=== PATIENT | male | born 1960 | race Caucasian/White ===

== ENCOUNTER 2021-07-23 08:55 | Emergency (ER) | payer BC ==
[~2021-07-23] VITALS: Ht 180.3 cm; Wt 93.0 kg
[~2021-07-23 08:55] MED LIST: ACET325 PO; ALBU90OI INH; Advil200 M1 PO; BUDE6HFA INH
[2021-07-23 09:55] LABS: BASOPHILS ABSOLUTE AUTO 0.04 K/mm3 (0.00-0.23); BASOPHILS PERCENT AUTO 1 % (0-2); EOSINOPHILS ABSOLUTE AUTO 0.21 K/mm3 (0.00-0.68); EOSINOPHILS PERCENT AUTO 3 % (0-6); Hematocrit 42.6 % (37.0-53.0); Hemoglobin 14.8 g/dL (13.5-17.5); IMMATURE GRAN ABSOLUTE AUTO 0.02 K/mm3 (0.00-0.10); IMMATURE GRAN PERCENT AUTO 0 % (0-1); LYMPHOCYTES PERCENT AUTO 42 % (21-46); MONOCYTES ABSOLUTE AUTO 0.54 K/mm3 (0.16-1.47); MONOCYTES PERCENT AUTO 7 % (4-13); Mean Corpuscular HGB 29.3 pg (26.0-34.0); Mean Corpuscular HGB Conc 34.7 g/dL (31.5-36.5); Mean Corpuscular Volume 84 fL (80-100); NEUTROPHILS ABSOLUTE AUTO 3.73 K/mm3 (1.96-9.15); NEUTROPHILS PERCENT AUTO 48 % (41-73); RDW Standard Deviation 39.7 fL (35.1-46.3); Red Blood Cell Count 5.05 M/mm3 (4.30-5.90); White Blood Cell Count 7.84 K/mm3 (4.00-11.30)
[2021-07-23 10:11] LABS: Alanine Aminotransfer (ALT/SGP 37 U/L (12-78); Albumin, Blood 3.9 g/dL (3.4-5.0); Albumin/Globulin Ratio 1.1 (0.8-1.8); Alk Phos 68 U/L (50-136); Anion Gap 6 mmol/L (6-16); Aspartate Aminotrans (AST/SGOT 23 U/L (12-37); Bilirubin, Total 0.7 mg/dL (0.1-1.0); Blood Urea Nitrogen 16 mg/dL (8-24); Bun/Creatinine Ratio 20.3 (12.0-20.0); CO2, Blood 26 mmol/L (21-32); Calcium, Blood 8.6 mg/dL (8.5-10.1); Chloride, Blood 109 mmol/L (98-108); Creatinine, Blood 0.79 mg/dL (0.60-1.20); Globulin, Blood 3.5 g/dL (2.2-4.0); Glomerular Filtration Rate >60 (60-); Glucose, Blood 104 mg/dL (70-99); Potassium, Blood 3.8 mmol/L (3.5-5.5); Sodium, Blood 141 mmol/L (136-145); Total Protein, Blood 7.4 g/dL (6.4-8.2)
[2021-07-23 10:29] LABS: Platelet Count 1 K/mm3 (150-400)
[2021-07-23 10:56] LABS: U Amphetamine Screen Not Detected; U Barbituate Screen Not Detected; U Benzodiazapine Screen Not Detected; U Buprenorphine Screen Not Detected; U Cannabinoids Screen Not Detected; U Cocaine Screen Not Detected; U Methadone Screen Not Detected; U Methamphetamine Screen Not Detected; U Opiates Screen Not Detected; U Oxycodone Screen Not Detected; U Phencyclidine Screen Not Detected; U Propoxyphene Screen Not Detected
[2021-07-23 11:19] LABS: International Normalized Ratio 0.96; Prothrombin Time Results 10.4 Sec (9.7-11.5)
[2021-07-23] MEDS ORDERED: DEXA4 PO (11:43)
== END 2021-07-23 12:03 | disposition home or self-care (01) ==
LOC: ER 08:55
PROVIDERS: Emergency Medicine
DX: D69.6 Thrombocytopenia, unspecified (principal); S00.532A Contusion of oral cavity, initial encounter; S50.02XA Contusion of left elbow, initial encounter; J45.909 Unspecified asthma, uncomplicated; Z79.899 Other long term (current) drug therapy; X58.XXXA Exposure to other specified factors, initial encounter
CPT/HCPCS: 36415; 76705; 80053; 85025; 85610; 86850; 86900; 86901; 96374; 99283-25; J1100

== ENCOUNTER 2021-07-30 06:21 | Emergency (ER) | payer BC ==
[~2021-07-30] VITALS: Ht 180.3 cm; Wt 90.7 kg
[~2021-07-30 06:21] MED LIST changes: +DEXA4 PO
[2021-07-30 07:40] LABS: BASOPHILS ABSOLUTE AUTO 0.08 K/mm3 (0.00-0.23); BASOPHILS PERCENT AUTO 0 % (0-2); EOSINOPHILS ABSOLUTE AUTO 0.15 K/mm3 (0.00-0.68); EOSINOPHILS PERCENT AUTO 1 % (0-6); Hematocrit 38.4 % (37.0-53.0); Hemoglobin 13.4 g/dL (13.5-17.5); IMMATURE GRAN ABSOLUTE AUTO 1.02 K/mm3 (0.00-0.10); IMMATURE GRAN PERCENT AUTO 6 % (0-1); LYMPHOCYTES ABSOLUTE AUTO 4.21 K/mm3 (0.84-5.20); LYMPHOCYTES PERCENT AUTO 23 % (21-46); MONOCYTES ABSOLUTE AUTO 1.07 K/mm3 (0.16-1.47); MONOCYTES PERCENT AUTO 6 % (4-13); Mean Corpuscular HGB 29.3 pg (26.0-34.0); Mean Corpuscular HGB Conc 34.9 g/dL (31.5-36.5); Mean Corpuscular Volume 84 fL (80-100); NEUTROPHILS ABSOLUTE AUTO 11.95 K/mm3 (1.96-9.15); NEUTROPHILS PERCENT AUTO 65 % (41-73); NRBC ABSOLUTE 0.07 K/mm3 (0.00-0.02); NRBC Auto 0.4 /100 WBC (0.0-0.2); RDW Coefficient Variation 13.1 % (11.7-14.2); RDW Standard Deviation 39.8 fL (35.1-46.3); Red Blood Cell Count 4.57 M/mm3 (4.30-5.90); White Blood Cell Count 18.48 K/mm3 (4.00-11.30)
[2021-07-30 07:44] LABS: Platelet Count 0 K/mm3 (150-400)
[2021-07-30 07:59] LABS: BASOPHILS PERCENT MAN 0 % (0-2); EOSINOPHILS PERCENT MAN 0 % (0-6); LYMPHOCYTES ABSOLUTE MAN 5.54 K/mm3 (0.84-5.20); LYMPHOCYTES PERCENT MAN 30 % (21-46); MONOCYTES PERCENT MAN 6 % (4-13); MYELOCYTE ABSOLUTE MAN 0.36 K/mm3 (0.00-0.00); MYELOCYTE PERCENT MAN 2 % (0-0); NEUTROPHILS ABSOLUTE MAN 11.45 K/mm3 (1.96-9.15); SEG NEUTROPHILS PERCENT MAN 62 % (41-73); TOTAL CELLS COUNTED 100
[2021-07-30 08:05] LABS: Alanine Aminotransfer (ALT/SGP 72 U/L (12-78); Albumin, Blood 3.4 g/dL (3.4-5.0); Albumin/Globulin Ratio 1.1 (0.8-1.8); Alk Phos 63 U/L (50-136); Anion Gap 4 mmol/L (6-16); Aspartate Aminotrans (AST/SGOT 30 U/L (12-37); Blood Urea Nitrogen 16 mg/dL (8-24); Bun/Creatinine Ratio 24.5 (12.0-20.0); CO2, Blood 28 mmol/L (21-32); Calcium, Blood 8.2 mg/dL (8.5-10.1); Chloride, Blood 103 mmol/L (98-108); Creatinine, Blood 0.65 mg/dL (0.60-1.20); Globulin, Blood 3.1 g/dL (2.2-4.0); Glomerular Filtration Rate >60 (60-); Glucose, Blood 103 mg/dL (70-99); Potassium, Blood 3.6 mmol/L (3.5-5.5); Sodium, Blood 135 mmol/L (136-145); Total Protein, Blood 6.5 g/dL (6.4-8.2)
[2021-07-30 09:04] LABS: International Normalized Ratio 0.93; Prothrombin Time Results 10.1 Sec (9.7-11.5)
[2021-07-30] MEDS ORDERED: Norco 5-325 Ta1 EACH PO (12:57)
== END 2021-07-30 14:09 | disposition home or self-care (01) ==
LOC: ER 06:21
PROVIDERS: Emergency Medicine; Physician Assistant
DX: D69.3 Immune thrombocytopenic purpura (principal); D69.6 Thrombocytopenia, unspecified; M54.5 Low back pain
CPT/HCPCS: 36415; 74177; 80053; 85025; 85610; 85730; 86900; 86901; 92960; 99152; 99285-25; J1170; P9035; Q9967

== ENCOUNTER 2021-08-01 13:35 | Inpatient (IN) | payer BC, OTHER ==
[~2021-08-01] VITALS: Ht 180.3 cm; Wt 87.3 kg
[~2021-08-01 13:35] MED LIST changes: -Percocet 5-3251 EACH PO
[2021-08-01 15:22] LABS: Thyroid Stimulating Hormone 2.93 uIU/mL (0.360-4.800)
[2021-08-02 05:21] LABS: BASOPHILS ABSOLUTE AUTO 0.01 K/mm3 (0.00-0.23); BASOPHILS PERCENT AUTO 0 % (0-2); EOSINOPHILS PERCENT AUTO 2 % (0-6); Hematocrit 34.3 % (37.0-53.0); Hemoglobin 11.7 g/dL (13.5-17.5); IMMATURE GRAN ABSOLUTE AUTO 0.22 K/mm3 (0.00-0.10); IMMATURE GRAN PERCENT AUTO 2 % (0-1); LYMPHOCYTES ABSOLUTE AUTO 3.02 K/mm3 (0.84-5.20); LYMPHOCYTES PERCENT AUTO 28 % (21-46); MONOCYTES ABSOLUTE AUTO 0.82 K/mm3 (0.16-1.47); MONOCYTES PERCENT AUTO 8 % (4-13); Mean Corpuscular HGB 29.7 pg (26.0-34.0); Mean Corpuscular HGB Conc 34.1 g/dL (31.5-36.5); Mean Corpuscular Volume 87 fL (80-100); NEUTROPHILS ABSOLUTE AUTO 6.48 K/mm3 (1.96-9.15); NEUTROPHILS PERCENT AUTO 60 % (41-73); RDW Coefficient Variation 13.8 % (11.7-14.2); RDW Standard Deviation 42.6 fL (35.1-46.3); Red Blood Cell Count 3.94 M/mm3 (4.30-5.90); White Blood Cell Count 10.75 K/mm3 (4.00-11.30)
[2021-08-02 05:33] LABS: Platelet Count 2 K/mm3 (150-400)
[2021-08-02 05:42] LABS: Alanine Aminotransfer (ALT/SGP 116 U/L (12-78); Albumin, Blood 3.1 g/dL (3.4-5.0); Albumin/Globulin Ratio 0.6 (0.8-1.8); Alk Phos 84 U/L (50-136); Anion Gap 2 mmol/L (6-16); Aspartate Aminotrans (AST/SGOT 42 U/L (12-37); Blood Urea Nitrogen 16 mg/dL (8-24); Bun/Creatinine Ratio 21.6 (12.0-20.0); CO2, Blood 28 mmol/L (21-32); Calcium, Blood 8.4 mg/dL (8.5-10.1); Chloride, Blood 101 mmol/L (98-108); Creatinine, Blood 0.74 mg/dL (0.60-1.20); Globulin, Blood 5.4 g/dL (2.2-4.0); Glomerular Filtration Rate >60 (60-); Glucose, Blood 98 mg/dL (70-99); Sodium, Blood 131 mmol/L (136-145); Total Protein, Blood 8.5 g/dL (6.4-8.2)
--- NOTE | 2021-08-02 08:22 | NUR ---
SPOKE WITH DOCTOR CALL LINE FOR CONSULT ON DR. ALDANA. REMOTELY PILOTED VEHICLE CONTROLLER SERVICE NOTIFIED THAT DR. ALDANA IS UNAVAILABLE UNTIL THE . WILL NOTIFY MD. PRIMARY RN NOTIFIED.
--- NOTE | 2021-08-02 08:49 | NUR ---
SPOKE WITH PHYSICIAN ABOUT CONSULT ATTEMPT FOR DR ALDANA. STATES HE WILL TAKE CARE OF THE CONSULT.
--- NOTE | 2021-08-02 09:37 | NUR ---
DR HUITRON IN ROOM.
--- NOTE | 2021-08-02 10:09 | NUR ---
PT STATES OKAY TO UPDATE BROTHER IRIS
--- NOTE | 2021-08-02 17:27 | NUR ---
SHIFT SUMMARY PT A/OX4, INDEPENDENT IN THE ROOM. IGIV GIVEN TODAY. PAIN BEING TREATED PER EMAR, PT REPORTS HAVING LESS BACK PAIN THAN YESTERDAY. TESTS ARE BEING RAN AT THIS TIME PER PHYSICIAN. NO ACUTE CHANGES TODAY.
[2021-08-03 04:12] LABS: BASOPHILS ABSOLUTE AUTO 0.02 K/mm3 (0.00-0.23); BASOPHILS PERCENT AUTO 0 % (0-2); EOSINOPHILS ABSOLUTE AUTO 0.36 K/mm3 (0.00-0.68); EOSINOPHILS PERCENT AUTO 3 % (0-6); Hematocrit 32.3 % (37.0-53.0); Hemoglobin 11.4 g/dL (13.5-17.5); IMMATURE GRAN PERCENT AUTO 1 % (0-1); LYMPHOCYTES ABSOLUTE AUTO 3.89 K/mm3 (0.84-5.20); LYMPHOCYTES PERCENT AUTO 36 % (21-46); MONOCYTES ABSOLUTE AUTO 0.94 K/mm3 (0.16-1.47); MONOCYTES PERCENT AUTO 9 % (4-13); Mean Corpuscular HGB 32.8 pg (26.0-34.0); Mean Corpuscular HGB Conc 35.3 g/dL (31.5-36.5); NEUTROPHILS ABSOLUTE AUTO 5.48 K/mm3 (1.96-9.15); NEUTROPHILS PERCENT AUTO 51 % (41-73); NRBC ABSOLUTE 0.02 K/mm3 (0.00-0.02); NRBC Auto 0.2 /100 WBC (0.0-0.2); RDW Coefficient Variation 15.3 % (11.7-14.2); RDW Standard Deviation 45.2 fL (35.1-46.3); Red Blood Cell Count 3.48 M/mm3 (4.30-5.90); White Blood Cell Count 10.79 K/mm3 (4.00-11.30)
[2021-08-03 04:16] LABS: Mean Corpuscular Volume 93 fL (80-100); Platelet Count 18 K/mm3 (150-400)
--- NOTE | 2021-08-03 04:36 | NUR ---
SHIFT SUMMARY PATIENT SLEPT A FEW HOURS THIS SHIFT. ALERT AND ORIENTED WHEN AWAKE. BACK PAIN NOT CONTROLLED WITH CURRENT PO PAIN MEDS. MEDICATED Q4 PER EMAR. ABLE TO PASS 2 BM'S THIS SHIFT. INDEPENDENT IN ROOM. CRITICAL PLATELET CAME BACK ON AM LABS OF 18, THIS IS UP FROM 2 PREVIOUSLY. WELL POINT PUMPING SUPERVISOR NOTIFIED. WILL REPORT TO DAY SHIFT RN.
[2021-08-03] MEDS ORDERED: Percocet 5-3251 EACH PO ×2 (14:50)
--- NOTE | 2021-08-03 15:17 | NUR ---
DISCHARGE PT A&O X4. PT PROVIDED W/ WRITTEN AND VERBAL INSTRUCTION, PT VERBALIZED UNDERSTANDING. PT TOLERATING PO INTAKE, VOIDING WELL, AND VSS. BOWEL SOUNDS PRESENT IN ALL 4QS. HARD SCRIPT PROVIDED TO PT IN PACKET. GREYSON LYN ESCORTED PT OUT VIA WC.
[2021-08-03 19:08] LABS: HBSAG SCREEN Negative (Negative); HEP A AB, IGM Negative (Negative); HEP B CORE AB, IGM Negative (Negative); HEP C VIRUS AB <0.1 (0.0-0.9); HIV SCREEN 4TH GENERATION WRFX Non Reactive (Non Reactive)
== END 2021-08-03 15:19 | disposition home or self-care (01) | DRG 813 ==
LOC: ER 13:35 → SURS 13:36 → MEDS 13:36 → SURS 18:48
PROVIDERS: Emergency Medicine; Internal Medicine; ADMIT Internal Medicine
DX: D69.3 Immune thrombocytopenic purpura (principal); G89.29 Other chronic pain; M54.9 Dorsalgia, unspecified; K59.00 Constipation, unspecified; R04.0 Epistaxis; J45.20 Mild intermittent asthma, uncomplicated; Z98.890 Other specified postprocedural states; Z94.7 Corneal transplant status; Z86.16 Personal history of COVID-19
CPT/HCPCS: 36415; 73700; 74177; 80053; 80074; 82607; 82746; 84443; 85025; 86677; 86850; 86900; 86901; 87389; 93005; 93010; 94760; 96374-59; 96375; 96376; 99284-25; A9270; C9113; G0378; J1568; J3010; Q9967

== ENCOUNTER → 2021-08-01 | Outpatient (CLI) | payer BC ==
[~2021-08-01] MED LIST changes: +Norco 5-325 Ta1 EACH PO; +Percocet 5-3251 EACH PO
[2021-08-01 12:44] LABS: BASOPHILS ABSOLUTE AUTO 0.02 K/mm3 (0.00-0.23); BASOPHILS PERCENT AUTO 0 % (0-2); EOSINOPHILS ABSOLUTE AUTO 0.15 K/mm3 (0.00-0.68); EOSINOPHILS PERCENT AUTO 1 % (0-6); Hematocrit 40.2 % (37.0-53.0); Hemoglobin 13.8 g/dL (13.5-17.5); IMMATURE GRAN ABSOLUTE AUTO 0.37 K/mm3 (0.00-0.10); IMMATURE GRAN PERCENT AUTO 2 % (0-1); LYMPHOCYTES ABSOLUTE AUTO 4.63 K/mm3 (0.84-5.20); LYMPHOCYTES PERCENT AUTO 28 % (21-46); MONOCYTES ABSOLUTE AUTO 1.15 K/mm3 (0.16-1.47); MONOCYTES PERCENT AUTO 7 % (4-13); Mean Corpuscular HGB 29.4 pg (26.0-34.0); Mean Corpuscular HGB Conc 34.3 g/dL (31.5-36.5); Mean Corpuscular Volume 86 fL (80-100); NEUTROPHILS ABSOLUTE AUTO 10.18 K/mm3 (1.96-9.15); NEUTROPHILS PERCENT AUTO 62 % (41-73); RDW Standard Deviation 42.6 fL (35.1-46.3); Red Blood Cell Count 4.69 M/mm3 (4.30-5.90)
[2021-08-01 12:53] LABS: Alanine Aminotransfer (ALT/SGP 160 U/L (12-78); Alk Phos 108 U/L (40-126); Anion Gap 12 mmol/L (6-16); Aspartate Aminotrans (AST/SGOT 62 U/L (12-37); Bilirubin, Total 1.3 mg/dL (0.1-1.0); Blood Urea Nitrogen 21 mg/dL (8-24); CO2, Blood 27 mmol/L (21-32); Calcium, Blood 8.6 mg/dL (8.5-10.1); Chloride, Blood 99 mmol/L (98-108); Glomerular Filtration Rate >60 (60-); Glucose, Blood 105 mg/dL (70-99); Sodium, Blood 138 mmol/L (136-145)
[2021-08-01 13:01] LABS: Platelet Count 1 K/mm3 (150-400)
[2021-08-01 13:20] LABS: International Normalized Ratio 0.95; Prothrombin Time Results 10.3 Sec (9.7-11.5)
== END | disposition home or self-care (01) ==
LOC: LAB SHORT 12:38 → LAB 12:38
PROVIDERS: Physician Assistant Medical
DX: D69.3 Immune thrombocytopenic purpura (principal)
CPT/HCPCS: 80053; 85025; 85610; 85730

== ENCOUNTER 2021-08-13 11:08 | Day surgery (SDC) | payer BC, OTHER ==
[2021-08-13 08:17] LABS: BASOPHILS ABSOLUTE AUTO 0.01 K/mm3 (0.00-0.23); BASOPHILS PERCENT AUTO 0 % (0-2); EOSINOPHILS ABSOLUTE AUTO 0.25 K/mm3 (0.00-0.68); EOSINOPHILS PERCENT AUTO 3 % (0-6); Hematocrit 30.1 % (37.0-53.0); IMMATURE GRAN PERCENT AUTO 1 % (0-1); LYMPHOCYTES ABSOLUTE AUTO 2.32 K/mm3 (0.84-5.20); LYMPHOCYTES PERCENT AUTO 24 % (21-46); MONOCYTES ABSOLUTE AUTO 0.58 K/mm3 (0.16-1.47); MONOCYTES PERCENT AUTO 6 % (4-13); Mean Corpuscular HGB Conc 33.2 g/dL (31.5-36.5); Mean Corpuscular Volume 93 fL (80-100); NEUTROPHILS ABSOLUTE AUTO 6.25 K/mm3 (1.96-9.15); NEUTROPHILS PERCENT AUTO 66 % (41-73); NRBC ABSOLUTE 0.05 K/mm3 (0.00-0.02); NRBC Auto 0.5 /100 WBC (0.0-0.2); RDW Coefficient Variation 18.3 % (11.7-14.2); Red Blood Cell Count 3.23 M/mm3 (4.30-5.90); White Blood Cell Count 9.51 K/mm3 (4.00-11.30)
[2021-08-13 08:24] LABS: Platelet Count 1 K/mm3 (150-400)
[~2021-08-13 11:08] MED LIST changes: +Percocet 5-3251 EACH PO
== END 2021-08-13 15:35 | disposition home or self-care (01) ==
LOC: ATC 11:08 → LAB FUT 08-04 12:55 → EDSTATUS 08-04 12:55
PROVIDERS: Internal Medicine Hematology & Oncology
DX: D69.3 Immune thrombocytopenic purpura (principal); C91.10 Chronic lymphocytic leukemia of B-cell type not having achieved remission
CPT/HCPCS: 36430; 85025; 86900; 86901; J7050; P9035

== ENCOUNTER 2021-08-21 00:27 | Day surgery (SDC) | payer BC, OTHER ==
[2021-08-20 10:06] LABS: Mean Corpuscular HGB 31.4 pg (26.0-34.0); Mean Corpuscular HGB Conc 33.3 g/dL (31.5-36.5); Mean Corpuscular Volume 94 fL (80-100); NRBC ABSOLUTE 0.09 K/mm3 (0.00-0.02); NRBC Auto 0.7 /100 WBC (0.0-0.2); RDW Coefficient Variation 18.4 % (11.7-14.2); RDW Standard Deviation 59.4 fL (35.1-46.3); Red Blood Cell Count 2.87 M/mm3 (4.30-5.90); White Blood Cell Count 12.89 K/mm3 (4.00-11.30)
[2021-08-20 10:12] LABS: Platelet Count 7 K/mm3 (150-400)
[2021-08-20 10:32] LABS: BAND PERCENT MAN 5 % (0-8); BASOPHILS ABSOLUTE MAN 0.12 K/mm3 (0.00-0.23); BASOPHILS PERCENT MAN 1 % (0-2); EOSINOPHILS PERCENT MAN 0 % (0-6); LYMPHOCYTES ABSOLUTE MAN 1.54 K/mm3 (0.84-5.20); LYMPHOCYTES PERCENT MAN 12 % (21-46); MONOCYTES ABSOLUTE MAN 0.12 K/mm3 (0.16-1.47); MONOCYTES PERCENT MAN 1 % (4-13); NEUTROPHILS ABSOLUTE MAN 11.08 K/mm3 (1.96-9.15); SEG NEUTROPHILS PERCENT MAN 81 % (41-73); TOTAL CELLS COUNTED 100
== END 2021-08-21 15:42 | disposition home or self-care (01) ==
LOC: ATC 00:27 → EDSTATUS 08-04 12:50 → LAB FUT 08-04 12:50
PROVIDERS: Registered Nurse Oncology
DX: D69.3 Immune thrombocytopenic purpura (principal); C91.10 Chronic lymphocytic leukemia of B-cell type not having achieved remission
CPT/HCPCS: 36415; 36430; 85025; 86900; 86901; J7050; P9037

== ENCOUNTER 2021-08-26 11:53 | Day surgery (SDC) | payer BC, OTHER ==
[2021-08-26 09:21] LABS: BASOPHILS ABSOLUTE AUTO 0.06 K/mm3 (0.00-0.23); BASOPHILS PERCENT AUTO 1 % (0-2); EOSINOPHILS ABSOLUTE AUTO 0.08 K/mm3 (0.00-0.68); EOSINOPHILS PERCENT AUTO 2 % (0-6); Hematocrit 32.7 % (37.0-53.0); Hemoglobin 10.8 g/dL (13.5-17.5); IMMATURE GRAN ABSOLUTE AUTO 0.01 K/mm3 (0.00-0.10); IMMATURE GRAN PERCENT AUTO 0 % (0-1); LYMPHOCYTES ABSOLUTE AUTO 1.29 K/mm3 (0.84-5.20); LYMPHOCYTES PERCENT AUTO 31 % (21-46); MONOCYTES ABSOLUTE AUTO 0.36 K/mm3 (0.16-1.47); MONOCYTES PERCENT AUTO 9 % (4-13); Mean Corpuscular HGB 30.9 pg (26.0-34.0); Mean Corpuscular Volume 93 fL (80-100); NEUTROPHILS ABSOLUTE AUTO 2.43 K/mm3 (1.96-9.15); NEUTROPHILS PERCENT AUTO 58 % (41-73); RDW Coefficient Variation 16.8 % (11.7-14.2); RDW Standard Deviation 57.1 fL (35.1-46.3); White Blood Cell Count 4.23 K/mm3 (4.00-11.30)
[2021-08-26 09:39] LABS: Platelet Count 3 K/mm3 (150-400)
[2021-08-26 09:45] LABS: Alanine Aminotransfer (ALT/SGP 40 U/L (12-78); Albumin, Blood 3.1 g/dL (3.4-5.0); Albumin/Globulin Ratio 0.6 (0.8-1.8); Alk Phos 66 U/L (50-136); Anion Gap 4 mmol/L (6-16); Aspartate Aminotrans (AST/SGOT 32 U/L (12-37); Bilirubin, Total 0.5 mg/dL (0.1-1.0); Blood Urea Nitrogen 15 mg/dL (8-24); Bun/Creatinine Ratio 18.9 (12.0-20.0); CO2, Blood 29 mmol/L (21-32); Calcium, Blood 8.7 mg/dL (8.5-10.1); Chloride, Blood 108 mmol/L (98-108); Creatinine, Blood 0.79 mg/dL (0.60-1.20); Globulin, Blood 5.4 g/dL (2.2-4.0); Glomerular Filtration Rate >60 (60-); Glucose, Blood 96 mg/dL (70-99); Potassium, Blood 4.2 mmol/L (3.5-5.5); Sodium, Blood 141 mmol/L (136-145); Total Protein, Blood 8.5 g/dL (6.4-8.2)
--- NOTE | 2021-08-26 16:08 | NUR ---
PT CAME IN WITH IV TO LFA.
== END 2021-08-26 17:14 | disposition home or self-care (01) ==
LOC: ATC 11:53 → EDSTATUS 11:54 → ATC 17:14
PROVIDERS: Internal Medicine Hematology & Oncology
DX: D69.3 Immune thrombocytopenic purpura (principal)
CPT/HCPCS: 36415; 36430; 80053; 85025; 86900; 86901; J7050; P9035

== ENCOUNTER 2024-10-28 11:18 | Inpatient (IN) | payer OTHER ==
[~2024-10-28] VITALS: Ht 180.3 cm; Wt 97.5 kg
[2024-10-28] MEDS ORDERED: BRUKINSA80 MG PO (11:48)
[2024-10-28] MEDS ORDERED: FLUTICASONE-SA1 EAC8 INH (11:48)
[2024-10-28] MEDS ORDERED: IRISH SEA MOSS (11:49)
[2024-10-28] MEDS ORDERED: [UNRECOGNIZED DRUG - OTHER] (11:49)
[2024-10-28] MEDS ORDERED: CefTRIAXone Sodium 1,000 MG in NS 100 ML IV ONE (15:10)
[2024-10-28] MEDS ORDERED: Doxycycline Hyclate 100 MG in Dextrose 5% 250 ML IV ONE (15:10)
[2024-10-28] MEDS ORDERED: FLU VACC TS2024-25(6MOS UP)/PF 45 MCG/0.5 ML SYRINGE IM ONE (16:50)
[2024-10-28] MEDS ORDERED: NS 1,000 ML IV SCH (16:55)
[2024-10-28] MEDS ORDERED: CefTRIAXone Sodium 1,000 MG in NS 100 ML IV SCH (18:00)
--- NOTE | 2024-10-28 19:29 | NUR ---
ADMIN NOTE GOT REPORT FROM ER. PT A&0X4. PT ADMITTED DUE TO SEVERE SEPSIS WITH THROMBOCYTOPENIA. NEUTROPENIC PRECAUTIONS IN PLACE. PT TRANSFERED SELF TO BED FROM ER [facility] AT 1850. PT ORIENTED TO ROOM, FALL PRECAUTIONS, AND CALL LIGHT. CALL LIGHT IN REACH, BELONGINGS WITH PT. GAVE REPORT TO NIGHT NURSE.
[2024-10-28 20:32] VITALS: BP 132/91
[2024-10-28] MEDS ORDERED: Lactobacil 2-S.Thermo-Bifido 1 1 Cap PO SCH (21:00)
[2024-10-29] VITALS (8 sets, daily range): BP systolic 119–147; BP diastolic 79–95
--- NOTE | 2024-10-29 04:09 | NUR ---
SHIFT SUMMARY PATIENT HAD NO ACUTE CHANGES. AXOX 4 AND INDEPENDENT IN ROOM. DENIES CHEST PAIN, SOB, AND N/V. VSS/AFEBRILE. PIV INTACT. NS INFUSING @ 200mL/HR BAG 2 OF 2. IV ABX INFUSED. DAUGHTER TO BRING IN HOME MEDICATIONS. COOPERATIVE WITH CARE.
[2024-10-29 05:41] LABS: Hematocrit 37.2 % (37.0-53.0); Hemoglobin 12.2 g/dL (13.5-17.5); Mean Corpuscular HGB Conc 32.8 g/dL (31.5-36.5); Mean Corpuscular Volume 73 fL (80-100); RDW Coefficient Variation 19.6 % (11.7-14.2); RDW Standard Deviation 50.4 fL (35.1-46.3); Red Blood Cell Count 5.08 M/mm3 (4.30-5.90); White Blood Cell Count 10.26 K/mm3 (4.00-11.30)
[2024-10-29 06:12] LABS: Albumin, Blood 2.5 g/dL (3.4-5.0); Albumin/Globulin Ratio 0.6 (0.8-1.8); Bilirubin, Total 0.4 mg/dL (0.1-1.0); Bun/Creatinine Ratio 17.3 (12.0-20.0); Calcium, Blood 8.8 mg/dL (8.5-10.1); Creatinine, Blood 0.75 mg/dL (0.60-1.20); Globulin, Blood 4.4 g/dL (2.2-4.0); Potassium, Blood 3.6 mmol/L (3.5-5.5); Total Protein, Blood 6.9 g/dL (6.4-8.2)
[2024-10-29 06:28] LABS: Platelet Count 1 K/mm3 (150-400)
--- NOTE | 2024-10-29 06:46 | NUR ---
CRITICAL LAB PLT ONE. HOSPITALIST DR NUÑEZ ORDERED ONE UNIT OF PLATLETS TO BE GIVEN ON DAY SHIFT.
[2024-10-29] MEDS ORDERED: NS 500 ML IV SCH (06:50)
--- NOTE | 2024-10-29 08:18 | NUR ---
PLT PLT STARTED BY THIS RN WITH WITNESS BY HARRY HUNTER. LINE FLUSHED WITHOUT ISSUE, VITAL SIGNS WITHIN NORMAL LIMITS. BLOOD PRODUCTS VERIFIED WITH DALE. CONSENT VERIFIED IN CHART. BLOOD PRODUCTS STARTED WITHOUT ISSUE.
[2024-10-29] MEDS ORDERED: Azithromycin 500 MG in NS 250 ML IV SCH (09:00)
[2024-10-29 11:03] LABS: Hematocrit 36.4 % (37.0-53.0); Mean Corpuscular HGB 24.3 pg (26.0-34.0); Mean Corpuscular Volume 74 fL (80-100); RDW Coefficient Variation 19.4 % (11.7-14.2); RDW Standard Deviation 51.5 fL (35.1-46.3); Red Blood Cell Count 4.94 M/mm3 (4.30-5.90); White Blood Cell Count 8.72 K/mm3 (4.00-11.30)
[2024-10-29 12:47] LABS: Platelet Count 10 K/mm3 (150-400)
--- NOTE | 2024-10-29 15:36 | NUR ---
PT RECIEVED I UNIT OF PLATELETS WITH NO REACTIONS. PT IS SITTING COMFORTABLY. NO OTHER CHANGES, QUESTIONS OR CONCERNS.
[2024-10-29 17:27] LABS: Hematocrit 36.9 % (37.0-53.0); Hemoglobin 12.1 g/dL (13.5-17.5); Mean Corpuscular HGB 24.1 pg (26.0-34.0); Mean Corpuscular HGB Conc 32.8 g/dL (31.5-36.5); Mean Corpuscular Volume 73 fL (80-100); RDW Coefficient Variation 19.3 % (11.7-14.2); Red Blood Cell Count 5.03 M/mm3 (4.30-5.90); White Blood Cell Count 8.37 K/mm3 (4.00-11.30)
[2024-10-29 17:36] LABS: Platelet Count 2 K/mm3 (150-400)
[2024-10-29 23:31] LABS: Hemoglobin 11.7 g/dL (13.5-17.5); Mean Corpuscular HGB 23.8 pg (26.0-34.0); Mean Corpuscular HGB Conc 32.5 g/dL (31.5-36.5); Mean Corpuscular Volume 73 fL (80-100); RDW Coefficient Variation 19.2 % (11.7-14.2); RDW Standard Deviation 50.8 fL (35.1-46.3); Red Blood Cell Count 4.92 M/mm3 (4.30-5.90); White Blood Cell Count 9.43 K/mm3 (4.00-11.30)
[2024-10-29 23:39] LABS: Platelet Count 2 K/mm3 (150-400)
[2024-10-30] VITALS (10 sets, daily range): BP systolic 128–163; BP diastolic 75–100
--- NOTE | 2024-10-30 00:02 | NUR ---
lab called with critical value notifcation aprox 2340--platelet count 2. This rn break nurse providing break for primary nurse. Notified primary nurse upon return from break. Started a platelet transfusion with Charge Nurse verifying product before administration (this is pt's 3rd unit of platelets). Platelet count of 2 is no change from last value drawn.
[2024-10-30 05:20] LABS: BASOPHILS ABSOLUTE AUTO 0.06 K/mm3 (0.00-0.23); BASOPHILS PERCENT AUTO 1 % (0-2); EOSINOPHILS ABSOLUTE AUTO 0.29 K/mm3 (0.00-0.68); EOSINOPHILS PERCENT AUTO 3 % (0-6); Hematocrit 35.8 % (37.0-53.0); Hemoglobin 11.7 g/dL (13.5-17.5); IMMATURE GRAN ABSOLUTE AUTO 0.24 K/mm3 (0.00-0.10); IMMATURE GRAN PERCENT AUTO 3 % (0-1); LYMPHOCYTES ABSOLUTE AUTO 3.37 K/mm3 (0.84-5.20); LYMPHOCYTES PERCENT AUTO 36 % (21-46); MONOCYTES ABSOLUTE AUTO 0.97 K/mm3 (0.16-1.47); MONOCYTES PERCENT AUTO 10 % (4-13); Mean Corpuscular HGB 24.2 pg (26.0-34.0); Mean Corpuscular HGB Conc 32.7 g/dL (31.5-36.5); Mean Corpuscular Volume 74 fL (80-100); NEUTROPHILS ABSOLUTE AUTO 4.49 K/mm3 (1.96-9.15); NEUTROPHILS PERCENT AUTO 48 % (41-73); RDW Coefficient Variation 19.2 % (11.7-14.2); RDW Standard Deviation 51.1 fL (35.1-46.3); Red Blood Cell Count 4.84 M/mm3 (4.30-5.90); White Blood Cell Count 9.42 K/mm3 (4.00-11.30)
[2024-10-30 05:33] LABS: Platelet Count 4 K/mm3 (150-400)
[2024-10-30] MEDS ORDERED: Acetaminophen 325 MG TABLET PO PRN (12:10)
[2024-10-30 15:21] LABS: Hematocrit 35.9 % (37.0-53.0); Hemoglobin 12.1 g/dL (13.5-17.5); Mean Corpuscular HGB 24.3 pg (26.0-34.0); Mean Corpuscular HGB Conc 33.7 g/dL (31.5-36.5); Mean Corpuscular Volume 72 fL (80-100); RDW Coefficient Variation 19.5 % (11.7-14.2); RDW Standard Deviation 49.3 fL (35.1-46.3); Red Blood Cell Count 4.97 M/mm3 (4.30-5.90); White Blood Cell Count 9.63 K/mm3 (4.00-11.30)
[2024-10-30 15:28] LABS: Platelet Count 13 K/mm3 (150-400)
--- NOTE | 2024-10-30 15:55 | NUR ---
PT HAS BEEN RESTING COMFORTABLY. PT HAD C/O HEADACHE WITH RELIEF FROM TYLENOL PRN. PT RECIEVED 1 UNIT OF PLATELETS.
[2024-10-30 21:03] LABS: Hematocrit 40.1 % (37.0-53.0); Mean Corpuscular HGB 23.8 pg (26.0-34.0); Mean Corpuscular HGB Conc 32.4 g/dL (31.5-36.5); Mean Corpuscular Volume 73 fL (80-100); RDW Coefficient Variation 19.5 % (11.7-14.2); RDW Standard Deviation 50.4 fL (35.1-46.3); Red Blood Cell Count 5.47 M/mm3 (4.30-5.90); White Blood Cell Count 10.48 K/mm3 (4.00-11.30)
[2024-10-30 21:28] LABS: Platelet Count 7 K/mm3 (150-400)
--- NOTE | 2024-10-30 21:28 | NUR ---
@8180 CRITICAL LAB RESULT FROM SONI @HEMATOLOGY: PLATELETS: 7. WILL NOTIFY THE ON-CALL HOSPITALIST. BLADDER CHANGER NOTIFIED.
--- NOTE | 2024-10-31 03:37 | NUR ---
SHIFT SUMMARY PT IS INDEPENDENT WITHIN HOSPITAL ROOM, COOPERATIVE WITH CARE, AND A&O X4. PT DENIES PAIN AND DISCOMFORT. CRITICAL VALUE OF PLATELETS: 7- NOTIFIED EQUIPMENT OPERATOR/LABORER HOSPITALIST MERE. NO NEW ORDERS AT THIS TIME. NO ACUTE EVENTS DURING THIS SHIFT. PT RESTING T/O THIS SHIFT. ABLE TO MAKE HIS NEEDS KNOWN. BED AT THE LOWEST POSITION, CALL LIGHT WITHIN REACH.
--- NOTE | 2024-10-31 05:08 | NUR ---
RE-SCAN BLADDER: 513MLS. WILL NOTIFY THE PROVIDER.
[2024-10-31 05:14] VITALS: BP 133/93
[2024-10-31 05:34] LABS: BASOPHILS ABSOLUTE AUTO 0.08 K/mm3 (0.00-0.23); BASOPHILS PERCENT AUTO 1 % (0-2); EOSINOPHILS ABSOLUTE AUTO 0.28 K/mm3 (0.00-0.68); EOSINOPHILS PERCENT AUTO 3 % (0-6); Hematocrit 38.6 % (37.0-53.0); Hemoglobin 12.8 g/dL (13.5-17.5); IMMATURE GRAN ABSOLUTE AUTO 0.28 K/mm3 (0.00-0.10); IMMATURE GRAN PERCENT AUTO 3 % (0-1); LYMPHOCYTES PERCENT AUTO 38 % (21-46); MONOCYTES ABSOLUTE AUTO 0.99 K/mm3 (0.16-1.47); MONOCYTES PERCENT AUTO 9 % (4-13); Mean Corpuscular HGB 24.3 pg (26.0-34.0); Mean Corpuscular HGB Conc 33.2 g/dL (31.5-36.5); Mean Corpuscular Volume 73 fL (80-100); NEUTROPHILS ABSOLUTE AUTO 5.19 K/mm3 (1.96-9.15); NEUTROPHILS PERCENT AUTO 47 % (41-73); RDW Standard Deviation 50.4 fL (35.1-46.3); Red Blood Cell Count 5.26 M/mm3 (4.30-5.90); White Blood Cell Count 11.02 K/mm3 (4.00-11.30)
[2024-10-31 05:44] LABS: Platelet Count 4 K/mm3 (150-400)
--- NOTE | 2024-10-31 05:49 | NUR ---
CRITICAL VALUE OF PLATELETS: 4, RECEIVED FROM THE LAB @3302. THIS TUMBLING MACHINE OPERATOR CONTACTED THE ON-CALL HOSPITALIST DR. NUÑEZ AND NOTIFIED OF THE RESULTS. NO NEW ORDERS AT THIS TIME. CHARGE NURSE ALVINO NOTIFIED.
[2024-10-31 07:37] VITALS: BP 133/97
[2024-10-31] MEDS ORDERED: IMMUN GLOB G(IGG)/PRO/IGA 0-50 100 ML IV SCH (13:00)
[2024-10-31] MEDS ORDERED: MethylPREDNISolone Sod Succ 1,000 MG in Dextrose 5% 50 ML IV SCH (13:00)
[2024-10-31 15:53] VITALS: BP 145/94
[2024-10-31] MEDS ORDERED: Azithromycin 250 MG Tab PO SCH (18:00)
[2024-10-31] MEDS ORDERED: Polyethylene Glycol 3350 17 gm PO SCH (18:00)
--- NOTE | 2024-10-31 19:29 | NUR ---
SHIFT SUMMARY PATIENT A/OX4, ABLE TO MAKE NEEDS KNOWN. PELASANT AND COOPERATIVE WITH CARE, FLAT AFFECT. INDEPENDENT IN ROOM. PATIENT WITH CONSULT FOR ONCOLOGY THIS MORNING, NEW ORDERS RECIEVED FOR IMMUNOGLOBULIN Q1 HOUR FOR 8 DOSES. ABLE TO TITRATE IMUNNOGLUBILIN TO 112ML/HR, UNABLE TO ADMINISTER ALL DOSES DUE TO STARTING TITRATION AT 22.5ML/HR. CALLED PHARAMACY TO RESCHEDULE MEDICATION BUT UNABLE TO DO SO WITHOUT CREATING NEW STICKERS. INFORMED SHEET ROCK SANDER RN DURING SHIFT REPORT THAT ALL DOSES NEED TO BE ADMINISTERED. PATIENT CONTINUES WITH NEUTROPENIC PRECAUTIONS. MULTIPLE VISITORS THIS SHIFT. NO OTHER CONCERNS AT THIS TIME.
[2024-10-31 20:16] VITALS: BP 146/94
--- NOTE | 2024-11-01 04:31 | NUR ---
SHIFT SUMMARY PT ALERT ORIENTED X 4 GETS UP IN ROOM AD PATRICIA. CONTINUES ON IGG ORDERED. REMAINS ON ZITHROMAX AND ROCEPHIN FOR PNEUMONIA. VSS ON RA SATTING AT 93%. NO C/O PAIN THIS SHIFT. CALLS APPROPRIATELY. HIS PLATELETS CONTINUE TO BE LOW AT 4. CONTINUES ON RA. RESTING IN BED AT THIS TIME WITH CALL LIGHT IN REACH
[2024-11-01 05:27] VITALS: BP 137/92
[2024-11-01 06:15] LABS: BASOPHILS ABSOLUTE AUTO 0.05 K/mm3 (0.00-0.23); BASOPHILS PERCENT AUTO 0 % (0-2); EOSINOPHILS PERCENT AUTO 0 % (0-6); Hematocrit 38.4 % (37.0-53.0); Hemoglobin 12.8 g/dL (13.5-17.5); IMMATURE GRAN ABSOLUTE AUTO 0.35 K/mm3 (0.00-0.10); IMMATURE GRAN PERCENT AUTO 2 % (0-1); LYMPHOCYTES ABSOLUTE AUTO 3.68 K/mm3 (0.84-5.20); LYMPHOCYTES PERCENT AUTO 20 % (21-46); MONOCYTES ABSOLUTE AUTO 0.27 K/mm3 (0.16-1.47); MONOCYTES PERCENT AUTO 2 % (4-13); Mean Corpuscular HGB Conc 33.3 g/dL (31.5-36.5); Mean Corpuscular Volume 72 fL (80-100); NEUTROPHILS ABSOLUTE AUTO 14.21 K/mm3 (1.96-9.15); NEUTROPHILS PERCENT AUTO 77 % (41-73); RDW Coefficient Variation 19.2 % (11.7-14.2); RDW Standard Deviation 48.8 fL (35.1-46.3); Red Blood Cell Count 5.33 M/mm3 (4.30-5.90); White Blood Cell Count 18.56 K/mm3 (4.00-11.30)
[2024-11-01 06:33] LABS: Platelet Count 43 K/mm3 (150-400)
[2024-11-01 07:00] LABS: Bun/Creatinine Ratio 22.9 (12.0-20.0); Calcium, Blood 9.1 mg/dL (8.5-10.1); Creatinine, Blood 0.83 mg/dL (0.60-1.20); Percent Saturation 35.8 % (20.0-50.0); Potassium, Blood 4.1 mmol/L (3.5-5.5)
[2024-11-01 07:34] VITALS: BP 145/92
[2024-11-01] MEDS ORDERED: IMMUN GLOB G(IGG)/PRO/IGA 0-50 100 ML IV SCH (10:00)
[2024-11-01 11:23] VITALS: BP 129/92
--- NOTE | 2024-11-01 11:35 | NUR ---
1120:PRIVIGEN TITRATED TO 44 MLS PER HOR. VSS. PT DENIES ANY ADVERSE REACTIONS. TOLERATING WELL AT THIS TIME.
[2024-11-01 11:55] VITALS: BP 136/85
--- NOTE | 2024-11-01 17:27 | NUR ---
SHIFT SUMMARY: PT IS A/O X 4, IND IN ROOM. PLEASANT AND COOPERATIVE WITH CARE. PT RECEIVING IGG IMMUNE THERAPY VIA IV. PT IS TOLERATING WELL. CURRENTLY AT RATE OF 188 MLS PER HOUR. NEEDS 4 MORE BOTTLES TO BE GIVEN. PT HAD NO C/O PAIN, NAUSEA, SOB THROUGHOUT THE DAY. PT REPORTS HE IS HOPEFUL HE CAN GO HOME TOMORROW.
[2024-11-01 19:30] VITALS: BP 126/81
[2024-11-02 03:23] VITALS: BP 123/84
--- NOTE | 2024-11-02 03:50 | NUR ---
SHIFT SUMMARY PT ALERT ORIENTED X 4 ABLE TO VERBALIZE NEEDS. VSS ON RA SATTING AT 95%. NO C/O PAIN THIS SHIFT. GETS UP AD PATRICIA IN ROOM AND AMBULATES TO THE BATHROOM. HE HAD HIS 8 BOTTLES OF IGG YESTERDAY. REMAINS ON ZITHROMAX AND ROCEPHIN FOR PNEUMONIA. NO COUGH OR CONGESTION. THERES A POSSIBILITY THAT HE MAY DC TO HOME TODAY. LABS DUE TO BE DONE THIS AM. PT RESTING IN BED AT THIS TIME WITH CALL LIGHT IN REACH.
[2024-11-02 06:10] LABS: BASOPHILS ABSOLUTE AUTO 0.06 K/mm3 (0.00-0.23); BASOPHILS PERCENT AUTO 0 % (0-2); EOSINOPHILS PERCENT AUTO 0 % (0-6); Hematocrit 34.1 % (37.0-53.0); Hemoglobin 11.3 g/dL (13.5-17.5); IMMATURE GRAN ABSOLUTE AUTO 0.64 K/mm3 (0.00-0.10); IMMATURE GRAN PERCENT AUTO 2 % (0-1); LYMPHOCYTES ABSOLUTE AUTO 3.74 K/mm3 (0.84-5.20); LYMPHOCYTES PERCENT AUTO 14 % (21-46); MONOCYTES ABSOLUTE AUTO 0.89 K/mm3 (0.16-1.47); MONOCYTES PERCENT AUTO 3 % (4-13); Mean Corpuscular HGB 24.1 pg (26.0-34.0); Mean Corpuscular HGB Conc 33.1 g/dL (31.5-36.5); Mean Corpuscular Volume 73 fL (80-100); NEUTROPHILS ABSOLUTE AUTO 21.74 K/mm3 (1.96-9.15); NEUTROPHILS PERCENT AUTO 80 % (41-73); Platelet Count 113 K/mm3 (150-400); RDW Coefficient Variation 19.6 % (11.7-14.2); RDW Standard Deviation 50.6 fL (35.1-46.3); Red Blood Cell Count 4.68 M/mm3 (4.30-5.90); White Blood Cell Count 27.07 K/mm3 (4.00-11.30)
[2024-11-02 07:28] VITALS: BP 129/79
[2024-11-02] MEDS ORDERED: AZIT500 PO (10:22)
[2024-11-02] MEDS ORDERED: LACT PO (10:23)
[2024-11-02] MEDS ORDERED: CEFU500T30 PO (10:25)
--- NOTE | 2024-11-02 15:27 | NUR ---
DISCHARGE SUMMARY: PT DISCHARGED HOME TODAY. PT WAS ABLE TO GET SELF DRESSED AND PACK UP HIS BELONGINGS. PT WAS EDUCATED ON DISCHARGE INSTRUCTIONS AND MEDICATIONS. ADVISED TO START ABX TODAY. PATIENT V/U. PT ESCORTED TO POV VIA WHEELCHAIR.
== END 2024-11-02 11:31 | disposition home or self-care (01) | DRG 871 ==
LOC: ER 11:18 → MEDS 18:26 → ENPENDDIS 11-02 10:05 → MEDS 11-02 11:31
PROVIDERS: Internal Medicine; ADMIT Family Medicine
PROC: 3E03329 Introduction of Other Anti-infective into Peripheral Vein, Percutaneous Approach (ICD-10-PCS; principal; 2024-10-28)
PROC: 30233R1 Transfusion of Nonautologous Platelets into Peripheral Vein, Percutaneous Approach (ICD-10-PCS; 2024-10-28)
PROC: 30233S1 Transfusion of Nonautologous Globulin into Peripheral Vein, Percutaneous Approach (ICD-10-PCS; 2024-10-31)
DX: A41.9 Sepsis, unspecified organism (principal); J18.9 Pneumonia, unspecified organism; C91.10 Chronic lymphocytic leukemia of B-cell type not having achieved remission; D69.3 Immune thrombocytopenic purpura; B58.9 Toxoplasmosis, unspecified; R04.2 Hemoptysis; R65.20 Severe sepsis without septic shock; D69.6 Thrombocytopenia, unspecified; D63.8 Anemia in other chronic diseases classified elsewhere; T38.0X5A Adverse effect of glucocorticoids and synthetic analogues, initial encounter; Z98.890 Other specified postprocedural states; Z79.899 Other long term (current) drug therapy; E86.0 Dehydration; R31.0 Gross hematuria
CPT/HCPCS: 36415; 36430; 71046; 71260; 80048; 80053; 82607; 82728; 82746; 83540; 83550; 83605; 84145; 85025; 85027; 86850; 86900; 86901; 87040; 96365-59; 96368; 99284-25; A9270; J0456; J0696; J1459; J2919; J7030; J7040; J7050; J7060; P9035; Q9967